=== PATIENT | male | born 1980 | race Caucasian/White ===

== ENCOUNTER 2018-01-29 08:57 | Inpatient (IN) | payer MEDICAID, OTHER ==
[~2018-01-29] VITALS: Ht 167.6 cm; Wt 62.7 kg
[2018-01-29] MEDS ORDERED: SODIUM CHLORIDE FLUSH 10ML SYR IVF ONE (10:30)
[2018-01-29] MEDS ORDERED: SODIUM CHLORIDE 0.9% 1,000ML IVBOLUS ONE (10:30)
[2018-01-29 11:21] LABS: BASOPHILS # (AUTO) 0.03 x10^3/uL (0-0.1); BASOPHILS % (AUTO) 0 % (0-1); EOSINOPHILS # (AUTO) 0.09 x10^3/uL (0-0.4); EOSINOPHILS % (AUTO) 1 % (1-7); LYMPHOCYTES # (AUTO) 1.59 x10^3/uL (1-3.4); LYMPHOCYTES % (AUTO) 20 % (22-44); MD SCAN; MEAN CORPUSCULAR HEMOGLOBIN 29.6 pg (27.5-34.5); MEAN CORPUSCULAR HGB CONC 33.1 g/dL (33.2-36.2); MEAN CORPUSCULAR VOLUME 89.4 fL (81-97); MEAN PLATELET VOLUME 14.4 fL (7.4-10.4); MONOCYTES # (AUTO) 0.62 x10^3/uL (0.2-0.8); MONOCYTES % (AUTO) 8 % (2-9); NEUTROPHILS # (AUTO) 5.53 x10^3/uL (1.8-6.8); NEUTROPHILS % (AUTO) 70 % (42-75); PLATELET COUNT 131 x10^3/uL (130-400); RED BLOOD COUNT 6.64 x10^6/uL (4.38-5.82); RED CELL DISTRIBUTION WIDTH 13.4 % (9.4-14.8)
[2018-01-29 11:26] LABS: MICROSCOPIC INDICATED
[2018-01-29 11:36] LABS: CULTURE INDICATED? YES
[2018-01-29 12:44] LABS: ALBUMIN 3.9 g/dL (3.4-5.0); ANION GAP 11 mmol/L (5-15); CALCIUM 8.5 mg/dL (8.5-10.1); CHLORIDE 133 mmol/L (98-107)
[2018-01-29 12:49] LABS: ALANINE AMINOTRANSFERASE 113 U/L (12-78); ALKALINE PHOSPHATASE 64 U/L (45-117); BILIRUBIN,TOTAL 2.1 mg/dL (0.2-1.0); CREATININE 1.53 mg/dL (0.7-1.3)
[2018-01-29 14:18] LABS: ANION GAP 8 mmol/L (5-15); CHLORIDE 134 mmol/L (98-107)
[2018-01-29] MEDS ORDERED: POLYETHYLENE GLYCOL 17 GM PACKET PO PRN (14:30)
[2018-01-29] MEDS ORDERED: ACETAMINOPHEN 325 MG TABLET PO PRN (14:30)
[2018-01-29] MEDS ORDERED: BISACODYL 10 MG SUPP PR PRN (14:30)
[2018-01-29] MEDS ORDERED: ENOXAPARIN 40 MG/0.4 ML ONE (14:57)
[2018-01-29] MEDS: ENOXAPARIN 40 MG/0.4 ML SQ SCH (15:32)
[2018-01-29] MEDS: POTASSIUM CHLORIDE 20 MEQ in SODIUM CHLORIDE 0.45% 1,000 ML IV SCH ×2 (15:33→21:10)
[2018-01-29 16:19] LABS: ANION GAP 6 mmol/L (5-15); CALCIUM 9.2 mg/dL (8.5-10.1); CHLORIDE 135 mmol/L (98-107)
[2018-01-29 16:31] LABS: CREATININE 1.52 mg/dL (0.7-1.3)
[2018-01-29] MEDS ORDERED: HALOPERIDOL 5 MG/ML ONE (19:36)
[2018-01-29] MEDS: HALOPERIDOL 5 MG/ML IVPush PRN (19:40)
[2018-01-29 20:46] LABS: ANION GAP 11 mmol/L (5-15); CALCIUM 8.4 mg/dL (8.5-10.1); CHLORIDE 134 mmol/L (98-107); CREATININE 1.37 mg/dL (0.7-1.3)
[2018-01-29] MEDS ORDERED: ZIPRASIDONE 20 MG INJ IM ONE (22:00)
[2018-01-30 00:34] LABS: ANION GAP 8 mmol/L (5-15); CALCIUM 8.7 mg/dL (8.5-10.1); CHLORIDE 135 mmol/L (98-107); CREATININE 1.27 mg/dL (0.7-1.3)
[2018-01-30] MEDS ORDERED: HALOPERIDOL 5 MG/ML ONE ×3 (03:28→07:35)
[2018-01-30] MEDS: HALOPERIDOL 5 MG/ML IVPush PRN ×3 (03:32→11:42)
[2018-01-30] MEDS: POTASSIUM CHLORIDE 20 MEQ in SODIUM CHLORIDE 0.45% 1,000 ML IV SCH ×4 (03:50→23:50)
[2018-01-30 04:34] LABS: MEAN CORPUSCULAR HEMOGLOBIN 30.1 pg (27.5-34.5); MEAN CORPUSCULAR HGB CONC 33.2 g/dL (33.2-36.2); MEAN CORPUSCULAR VOLUME 90.8 fL (81-97); RED BLOOD COUNT 5.57 x10^6/uL (4.38-5.82); RED CELL DISTRIBUTION WIDTH 13.7 % (9.4-14.8)
[2018-01-30 04:35] LABS: ALBUMIN 3.9 g/dL (3.4-5.0); ANION GAP 8 mmol/L (5-15); CALCIUM 8.8 mg/dL (8.5-10.1); CHLORIDE 133 mmol/L (98-107)
[2018-01-30 04:40] LABS: ALANINE AMINOTRANSFERASE 103 U/L (12-78); ALKALINE PHOSPHATASE 63 U/L (45-117); BILIRUBIN,TOTAL 2.1 mg/dL (0.2-1.0); CREATININE 1.25 mg/dL (0.7-1.3); TOTAL PROTEIN 6.8 g/dL (6.4-8.2)
[2018-01-30 06:37] LABS: BASOPHILS # (AUTO) 0.02 x10^3/uL (0-0.1); BASOPHILS % (AUTO) 0 % (0-1); EOSINOPHILS # (AUTO) 0.08 x10^3/uL (0-0.4); EOSINOPHILS % (AUTO) 2 % (1-7); LYMPHOCYTES % (AUTO) 26 % (22-44); MD SCAN; MEAN PLATELET VOLUME 13.6 fL (7.4-10.4); MONOCYTES # (AUTO) 0.42 x10^3/uL (0.2-0.8); MONOCYTES % (AUTO) 8 % (2-9); NEUTROPHILS # (AUTO) 3.37 x10^3/uL (1.8-6.8); NEUTROPHILS % (AUTO) 64 % (42-75); PLATELET COUNT 123 x10^3/uL (130-400)
[2018-01-30 08:21] LABS: ANION GAP 9 mmol/L (5-15); CALCIUM 8.5 mg/dL (8.5-10.1); CHLORIDE 131 mmol/L (98-107); CREATININE 1.23 mg/dL (0.7-1.3)
[2018-01-30] MEDS: SENNA/DOCUSATE TABLET PO SCH (09:00)
[2018-01-30] MEDS ORDERED: ENOXAPARIN 40 MG/0.4 ML ONE (15:55)
[2018-01-30] MEDS: ENOXAPARIN 40 MG/0.4 ML SQ SCH (16:01)
[2018-01-30 18:58] LABS: ANION GAP 10 mmol/L (5-15); CALCIUM 8.6 mg/dL (8.5-10.1); CHLORIDE 132 mmol/L (98-107); CREATININE 0.93 mg/dL (0.7-1.3)
[2018-01-31 05:28] LABS: MEAN CORPUSCULAR HEMOGLOBIN 30.2 pg (27.5-34.5); MEAN CORPUSCULAR HGB CONC 33.6 g/dL (33.2-36.2); MEAN CORPUSCULAR VOLUME 90.1 fL (81-97); RED BLOOD COUNT 5.04 x10^6/uL (4.38-5.82); RED CELL DISTRIBUTION WIDTH 13.7 % (9.4-14.8)
[2018-01-31 05:32] LABS: ALANINE AMINOTRANSFERASE 94 U/L (12-78); ALBUMIN 3.5 g/dL (3.4-5.0); ANION GAP 10 mmol/L (5-15); CALCIUM 8.2 mg/dL (8.5-10.1); CHLORIDE 127 mmol/L (98-107); CREATININE 0.95 mg/dL (0.7-1.3)
[2018-01-31 05:34] LABS: ALKALINE PHOSPHATASE 61 U/L (45-117); BILIRUBIN,TOTAL 2.3 mg/dL (0.2-1.0); TOTAL PROTEIN 6.2 g/dL (6.4-8.2)
[2018-01-31 05:57] LABS: BASOPHILS # (AUTO) 0.02 x10^3/uL (0-0.1); BASOPHILS % (AUTO) 0 % (0-1); EOSINOPHILS % (AUTO) 2 % (1-7); LYMPHOCYTES # (AUTO) 1.49 x10^3/uL (1-3.4); LYMPHOCYTES % (AUTO) 32 % (22-44); MD SCAN; MEAN PLATELET VOLUME 13.1 fL (7.4-10.4); MONOCYTES # (AUTO) 0.28 x10^3/uL (0.2-0.8); MONOCYTES % (AUTO) 6 % (2-9); NEUTROPHILS # (AUTO) 2.76 x10^3/uL (1.8-6.8); NEUTROPHILS % (AUTO) 60 % (42-75); PLATELET COUNT 86 x10^3/uL (130-400)
[2018-01-31 08:04] VITALS: BP 106/70
[2018-01-31] MEDS: SENNA/DOCUSATE TABLET PO SCH ×2 (09:00→09:33)
[2018-01-31 09:20] VITALS: BP 117/74
[2018-01-31 14:00] VITALS: BP 106/71
[2018-01-31] MEDS: POTASSIUM CHLORIDE 20 MEQ in DEXTROSE 5% 1,000 ML IV SCH (14:12)
[2018-01-31] MEDS: ENOXAPARIN 40 MG/0.4 ML SQ SCH (14:30)
[2018-01-31 18:57] VITALS: BP 111/71
[2018-02-01] MEDS: POTASSIUM CHLORIDE 20 MEQ in DEXTROSE 5% 1,000 ML IV SCH ×2 (00:19→09:00)
[2018-02-01 00:20] VITALS: BP 116/75
[2018-02-01 06:02] LABS: ANION GAP 9 mmol/L (5-15); CALCIUM 8.2 mg/dL (8.5-10.1); CHLORIDE 120 mmol/L (98-107)
[2018-02-01 06:05] LABS: CREATININE 0.83 mg/dL (0.7-1.3)
[2018-02-01 07:23] VITALS: BP 119/87
[2018-02-01] MEDS: SENNA/DOCUSATE TABLET PO SCH (09:00)
[2018-02-01 12:46] VITALS: BP 114/81
[2018-02-01] MEDS: ENOXAPARIN 40 MG/0.4 ML SQ SCH (14:30)
[2018-02-01 19:42] VITALS: BP 117/77
[2018-02-02 00:01] VITALS: BP 105/68
[2018-02-02 06:56] VITALS: BP 106/68
[2018-02-02] MEDS: SENNA/DOCUSATE TABLET PO SCH (09:16)
[2018-02-02] MEDS ORDERED: POTASSIUM CHLORIDE 20 MEQ in DEXTROSE 5% 1,000 ML IV SCH (11:30)
[2018-02-02 12:04] LABS: ANION GAP 8 mmol/L (5-15); CALCIUM 8.3 mg/dL (8.5-10.1); CHLORIDE 113 mmol/L (98-107); CREATININE 0.85 mg/dL (0.7-1.3)
[2018-02-02 12:20] VITALS: BP 104/70
[2018-02-02] MEDS: POTASSIUM CHLORIDE 20 MEQ in DEXTROSE 5% 1,000 ML IV SCH (14:30)
[2018-02-02] MEDS: ENOXAPARIN 40 MG/0.4 ML SQ SCH (15:01)
[2018-02-02 18:41] VITALS: BP 105/69
[2018-02-03 01:12] VITALS: BP 103/64
[2018-02-03 05:40] LABS: ANION GAP 6 mmol/L (5-15); CALCIUM 8.4 mg/dL (8.5-10.1); CHLORIDE 113 mmol/L (98-107); CREATININE 0.75 mg/dL (0.7-1.3)
[2018-02-03 07:26] VITALS: BP 108/71
[2018-02-03] MEDS: SENNA/DOCUSATE TABLET PO SCH (09:08)
[2018-02-03] MEDS: POTASSIUM CHLORIDE 20 MEQ in DEXTROSE 5% 1,000 ML IV SCH (12:00)
[2018-02-03 12:45] VITALS: BP 103/69
[2018-02-03] MEDS: ENOXAPARIN 40 MG/0.4 ML SQ SCH (15:14)
[2018-02-03 20:19] VITALS: BP 107/71
[2018-02-03] MEDS ORDERED: POTASSIUM CHLORIDE 20 MEQ in DEXTROSE 5% 1,000 ML IV SCH (22:30)
[2018-02-04 00:18] VITALS: BP 108/77
[2018-02-04 05:32] LABS: CREATININE 0.85 mg/dL (0.7-1.3)
[2018-02-04 05:44] LABS: ANION GAP 7 mmol/L (5-15); CHLORIDE 109 mmol/L (98-107)
[2018-02-04 08:02] VITALS: BP 103/69
[2018-02-04] MEDS: SENNA/DOCUSATE TABLET PO SCH (08:27)
[2018-02-04 14:15] VITALS: BP 102/67
[2018-02-04] MEDS: ENOXAPARIN 40 MG/0.4 ML SQ SCH (14:30)
[2018-02-04 18:32] VITALS: BP 106/73
[2018-02-05 02:57] VITALS: BP 104/67
[2018-02-05 05:28] LABS: CHLORIDE 110 mmol/L (98-107)
[2018-02-05 05:32] LABS: ANION GAP 6 mmol/L (5-15); CALCIUM 8.6 mg/dL (8.5-10.1)
[2018-02-05 07:46] VITALS: BP 110/70
[2018-02-05] MEDS: SENNA/DOCUSATE TABLET PO SCH (08:45)
[2018-02-05 13:13] VITALS: BP 114/73
[2018-02-05] MEDS: ENOXAPARIN 40 MG/0.4 ML SQ SCH (14:30)
[2018-02-05 19:58] VITALS: BP 103/68
[2018-02-05] MEDS: OLANZAPINE 2.5 MG TABLET PO SCH (20:03)
[2018-02-06 00:46] VITALS: BP 110/69
[2018-02-06 06:05] LABS: ANION GAP 7 mmol/L (5-15); CALCIUM 8.4 mg/dL (8.5-10.1); CHLORIDE 111 mmol/L (98-107)
[2018-02-06 06:08] LABS: CREATININE 0.78 mg/dL (0.7-1.3)
[2018-02-06 07:16] VITALS: BP 109/73
[2018-02-06] MEDS: SENNA/DOCUSATE TABLET PO SCH (07:53)
[2018-02-06 13:44] VITALS: BP 102/78
[2018-02-06] MEDS: ENOXAPARIN 40 MG/0.4 ML SQ SCH (14:30)
[2018-02-06 19:57] VITALS: BP 105/67
[2018-02-06] MEDS: OLANZAPINE 2.5 MG TABLET PO SCH (20:10)
[2018-02-07 00:40] VITALS: BP 122/79
[2018-02-07 06:38] LABS: ANION GAP 11 mmol/L (5-15); CHLORIDE 108 mmol/L (98-107); CREATININE 0.97 mg/dL (0.7-1.3)
[2018-02-07 07:36] VITALS: BP 120/79
[2018-02-07] MEDS: SENNA/DOCUSATE TABLET PO SCH (08:47)
[2018-02-07 13:34] VITALS: BP 114/66
[2018-02-07] MEDS: ENOXAPARIN 40 MG/0.4 ML SQ SCH (14:30)
[2018-02-07 19:53] VITALS: BP 110/73
[2018-02-07] MEDS: OLANZAPINE 5 MG TABLET PO SCH (21:00)
[2018-02-08 01:09] VITALS: BP 110/73
[2018-02-08 07:03] VITALS: BP 106/71
[2018-02-08] MEDS: SENNA/DOCUSATE TABLET PO SCH (09:00)
[2018-02-08] MEDS: ENOXAPARIN 40 MG/0.4 ML SQ SCH (14:30)
[2018-02-08 14:45] VITALS: BP 107/73
[2018-02-08 20:19] VITALS: BP 117/74
[2018-02-08] MEDS: OLANZAPINE 5 MG TABLET PO SCH (20:43)
[2018-02-09 01:42] VITALS: BP 110/80
[2018-02-09 07:02] VITALS: BP 114/79
[2018-02-09] MEDS: SENNA/DOCUSATE TABLET PO SCH (09:00)
[2018-02-09 13:35] VITALS: BP 105/73
[2018-02-09] MEDS: ENOXAPARIN 40 MG/0.4 ML SQ SCH (14:30)
[2018-02-09 19:50] VITALS: BP 111/70
[2018-02-09] MEDS: OLANZAPINE 5 MG TABLET PO SCH (21:00)
[2018-02-10 01:50] VITALS: BP 98/66
[2018-02-10 07:37] VITALS: BP 112/78
[2018-02-10] MEDS: SENNA/DOCUSATE TABLET PO SCH (09:41)
[2018-02-10] MEDS ORDERED: SENNA/DOCUSATE TABLET PO PRN (10:00)
[2018-02-10 11:07] LABS: HIT RESULT NEGATIVE (NEGATIVE)
[2018-02-10 14:50] VITALS: BP 114/76
[2018-02-10 20:31] VITALS: BP 116/74
[2018-02-10] MEDS: OLANZAPINE 5 MG TABLET PO SCH (21:16)
[2018-02-11 01:20] VITALS: BP 102/69
[2018-02-11 07:46] VITALS: BP 101/69
[2018-02-11] MEDS ORDERED: OLAN5TAB9 PO (08:57)
== END 2018-02-12 07:26 | disposition home or self-care (01) | DRG 640 ==
LOC: ED 13:42 → EDIP 13:43 → UNDOADMIN 13:43 → ED 13:52 → EDIP 17:48 → CCU 17:48 → 4EST 01-31 07:00
PROVIDERS: ADMIT Internal Medicine; ATTEND Internal Medicine
DX: E87.0 Hyperosmolality and hypernatremia (principal); N17.0 Acute kidney failure with tubular necrosis; F84.5 Asperger's syndrome; F84.0 Autistic disorder; F22 Delusional disorders; F50.9 Eating disorder, unspecified; E86.0 Dehydration; E87.6 Hypokalemia; E87.1 Hypo-osmolality and hyponatremia; E87.8 Other disorders of electrolyte and fluid balance, not elsewhere classified; F90.9 Attention-deficit hyperactivity disorder, unspecified type; R62.7 Adult failure to thrive; Z86.59 Personal history of other mental and behavioral disorders; G47.00 Insomnia, unspecified; F29 Unspecified psychosis not due to a substance or known physiological condition
CPT/HCPCS: 36415; 74018; 80048; 80053; 81001; 83690; 83735; 83930; 83935; 84100; 84443; 85025; 86022; 87086; 99285; J1650; J3480; J3486; J7070; J1630; J7030